=== PATIENT | male | born 1965 | race Caucasian/White ===

== ENCOUNTER → 2017-01-08 | Day surgery (SDC) | payer OTHER ==
[~2017-01-08] VITALS: Ht 177.8 cm; Wt 127.0 kg
[~2017-01-08] MED LIST: ASPI-973 PO; CARI350T PO; CARV6.252 PO; LISI40TA PO; Lactated Ringer's 1,000 ML IV SCH; MetoCLOpramide 5 mg/mL 2 mL Inj IVPUSH PRN; Ondansetron 2 mg/mL 2 mL Inj IVPUSH PRN; PROZ20 PO; PRV40T PO; Propofol 10,000 mCg/mL 20 mL Inj ONE; [UNRECOGNIZED DRUG - OTHER] PO
[2017-01-08 08:58] VITALS: BP 156/103; PULSE 90; RESP 16; O2SAT 97
--- NOTE | 2017-01-08 09:07 | PCM.HPANE ---
Patient Data Surgeon Admitting Provider: Attending Provider:Gabriel Kenney MD Primary Care Physician:Irvin Pettit MD Other Provider:[facility] Anesthesia Reason for Visit Colon Ca Screening Ht/WT & BMI Body Mass Index Allergies Coded Allergies: sumatriptan (Verified Allergy, Severe, tongue swelling, 01/04/17) ciprofloxacin (Verified Allergy, Unknown, 01/04/17) ciprofloxacin HCl (Verified Allergy, Unknown, 01/04/17) divalproex sodium (Verified Adverse Reaction, Intermediate, increased weight, 01/04/17) Past Anesthesia History Anesthesia History: Denies:: Abnormal Airway, Anesthesia Reactions, Difficult Intubation, Fam Anesthesia Reaction, Fam Malignant Hypertherm, Malignant Hyperthermia Diabetes History Hx Diabetes?: No Medications Hypertension Medication: Yes Home Meds Incl Beta Mónica: Yes Reported Medications Carisoprodol (Soma)350 Mg Pxwema622 Mg PO TID 01/04/17 Fluoxetine (Prozac)20 Mg Xzsuqru08 Mg PO DAILY Ref 0 01/04/17 Pravastatin (Pravachol)40 Mg Kwuggp39 Mg PO HS Ref 0 01/04/17 Lisinopril 40 Mg Hjiikp00 Mg PO DAILY 30 Days Ref 0 01/04/17 Carvedilol 6.25 Mg Tablet6.25 Mg PO BID Ref 0 01/04/17 Aspirin 81 Mg Axzydq23 Mg PO DAILY Ref 0 01/04/17 ACETAMINOPHEN/COD-Expunged Drug, Do Not Renew (TYLENOL/COD #3-Expunged Drug, Do Not Renew!)1 Ea Tab1 Ea PO 03/10/12 Discontinued Reported Medications Carisoprodol 350 Mg Hgvyeu770 Mg PO QIDP #30 TAB FOR MUSCLE SPASM 03/10/12 Pravastatin-Expunged Drug, Do Not Renew! (Pravachol-Expunged Drug, Do Not Renew! )20 Mg Tab20 Mg PO HS #30 TAB 03/10/12 Carvedilol-Expunged Drug, Do Not Renew! 12.5 Mg Eroyrt55.5 Mg PO 03/10/12 AmLODIPine-Expunged Drug, Do Not Renew! 10 Mg Siqofb34 Mg PO 03/10/12 Lisinopril-Expunged Drug, Do Not Renew! 10 Mg Twsnlc39 Mg PO DAILY 03/10/12 History History of ENT Problems?: No HEENT History: Denies:: Abnormal Airway Cataracts Difficult Intubation Dysphagia Glaucoma Hearing Problem Sinus Problem TMJ Denture Type: None Teeth Condition: Within Normal Limits Hx of Heart Problems?: Yes Cardiovascular History: Positive for:: Hypertension Hx of Respiratory Problem?: Yes Respiratory History: Positive for:: Asthma Use of C-PAP Machine Hx Neurologic Problems?: No Hx of GI Problems?: Yes Gastrointestinal History: Positive for:: Heartburn Hx of Problems?: No Hx Musculoskeletal Problems?: No Hx Surgeries?: Yes Hx Substance Use: Yes Smoking Status: Current Every Day Smoker Stop/Bang Treated for Sleep Apnea?: Yes Do You Have a CPAP Machine?: Yes MAEGAN Risk Assessment: High Risk, =/>3 Yes Risk Assessment Category Category 1A: Patient has history of documented sleep apnea, and HAS NOT received any narcotic, sedative or anesthesia administration during this stay. Category 1B: Patient has history of documented sleep apnea, and HAS received any narcotic , sedative or anesthesia administration during this stay Category 2: Patient has SUSPECTED Obstructive Sleep Apnea, and HAS received any narcotic , sedative or anesthesia administration during this stay. Category 3: Patient has SUSPECTED Obstructive Sleep Apnea and HAS NOT received narcotic, sedative or anesthesia administration during this stay. Category 4: Outpatient in Procedural Areas with known sleep apnea or who screen positive for High Risk via the STOP/BANG questionnaire. Exam Exam General Appearance: Oriented X3 HEENT/AIRWAY: MP 2 Lungs: Normal Air Movement Heart: Regular Rate/Rhythm Plan Impression Patient chart reviewed, patient interviewed and anesthestic plan with risks, benefits, and alternatives discussed, and informed consent obtained. ASA Physical Status: ASA3 Severe Disease Anesthetic Plan: MAC Bene/Risks/Altern/Consents: Yes HP Complete Prior to Induction: Yes Young Eng MD Jan 08, 2017 09:07
[2017-01-08 09:55] VITALS: BP 125/86; PULSE 94; RESP 16; O2SAT 93
--- NOTE | 2017-01-08 10:00 | PCM.ANEP1 ---
Post Anesthesia PACU Phase 1 Assessment Vital Signs Vital Signs Date Time Temp Pulse Resp B/P Pulse Ox O2 Delivery O2 Flow Rate FiO2 01/08/17 09:55 94 16 125/86 93 Room Air 01/08/17 08:58 90 16 156/103 97 Room Air Anesthetic Administered: MAC Level of Alertness: Awake, talking Pain: No Nausea or Vomiting: No CV Function & Hydration Stable: Yes Airway Device: Lungs: Normal Air Movement PACU Phase 2 Assessment Patient Instructions Provided: N/A Young Eng MD Jan 08, 2017 10:00
[2017-01-08 10:11] VITALS: BP 120/80; PULSE 92; RESP 14; O2SAT 95
--- NOTE | 2017-01-08 10:25 | ENDO ---
[address] [address] ENDOSCOPY PROCEDURE PATIENT: TERESA IGLESIAS : 1965 MR#: [id number] ADMIT: 01/08/2017 JOB ID: [id number] DATE OF SERVICE: 01/08/2017 TYPE OF OPERATION: Colonoscopy. PREOPERATIVE DIAGNOSIS: Colorectal cancer screening. POSTOPERATIVE DIAGNOSIS: Normal colonoscopy. ANESTHESIA: Monitored anesthesia care. COMPLICATIONS: None. ESTIMATED BLOOD LOSS: Minimal. DESCRIPTION OF PROCEDURE: After risks and benefits explained to the patient, informed consent was obtained. After anesthesia administered, colonoscope was then inserted from the rectum to the cecum. Mucosa carefully examined. Prep of the patient was good. After procedure the scope withdrawn and procedure terminated. FINDINGS: Upon inspection of the anus no masses, hemorrhoids, ulcers, fissures that were seen throughout the entire examination. No polyps, masses, or lesions in retroflexion. IMPRESSION: Normal colonoscopy. RECOMMENDATIONS: Repeat colonoscopy in 10 years for colorectal cancer screening.
== END | disposition home or self-care (01) ==
LOC: END 00:33
PROVIDERS: ATTEND Internal Medicine Gastroenterology
DX: Z12.11 Encounter for screening for malignant neoplasm of colon (principal); I10 Essential (primary) hypertension; E78.5 Hyperlipidemia, unspecified; I25.10 Atherosclerotic heart disease of native coronary artery without angina pectoris; R73.01 Impaired fasting glucose; G47.33 Obstructive sleep apnea (adult) (pediatric); M48.00 Spinal stenosis, site unspecified; E66.01 Morbid (severe) obesity due to excess calories; F17.210 Nicotine dependence, cigarettes, uncomplicated; Z79.82 Long term (current) use of aspirin; Z68.41 Body mass index [BMI] 40.0-44.9, adult
CPT/HCPCS: G0121; J2704; J7120